=== PATIENT | male | born 1990 | race African-American/Black ===

== ENCOUNTER 2020-04-11 11:31 | Outpatient (REF) | payer OTHER, SELFPAY ==
[2020-04-11 11:56] LABS: MANUAL DIFF FLAG NO
[2020-04-11 12:11] LABS: Basophils Percent Auto 0.5 % (0-2); Eosinophils Percent Auto 0.9 % (0-4); Hematocrit 39.4 % (42-52); Hemoglobin 13.8 g/dl (14.0-18.0); Imm Gran Abs Auto 0.01 X10*3/uL (0.00-0.03); Imm Gran Pct Auto 0.2 % (0.0-0.4); Lymphocytes Absolute Auto 2.3 X10*3/uL (1.2-4.9); Lymphocytes Percent Auto 52.5 % (20-40); Mean Corpuscular Hemoglobin 29.6 pg (27.0-33.0); Mean Corpuscular Volume 84.4 fL (80-98); Mean Platelet Volume 10.2 fL (9.4-12.4); Monocytes Absolute Auto 0.4 X10*3/uL (0.1-1.2); Monocytes Percent Auto 9.5 % (2-11); Neutrophils Absolute Auto 1.6 X10*3/uL (2.0-8.3); Neutrophils Percent Auto 36.4 % (45-73); Platelet Count 243 X10*3/uL (160-400); Red Blood Count 4.67 X10*6/uL (4.60-5.80); Red Cell Distribution Width 12.2 % (11.0-16.0); White Blood Count 4.4 X10*3/uL (4.8-10.8)
[2020-04-11 12:29] LABS: Estimated Average Glucose 105 mg/dL; Hemoglobin A1c % 5.3 %
[2020-04-11 12:45] LABS: Alanine Aminotransferase 24 U/L (0-40); Albumin Level 4.6 g/dL (3.5-5.0); Alkaline Phosphatase 67 U/L (39-117); Anion Gap 11 (12-20); Aspartate Amino Transferase 23 U/L (5-37); Bilirubin Total 0.8 mg/dL (0.0-1.0); Blood Urea Nitrogen 15 mg/dL (9-16); Calcium 9.3 mg/dL (8.4-10.2); Carbon Dioxide 28 mmol/L (22-29); Chloride 103 mmol/L (96-108); Cholesterol 178 mg/dL; Estimated Glomerular Filt Rate > 60; Glucose Fasting 91 mg/dL (60-99); HDL Cholesterol 60 mg/dL; LDL Cholesterol Calculated 111 mg/dl; Potassium 4.1 mmol/l (3.3-5.1); Sodium 138 mmol/L (135-145); Total Protein 7.2 g/dL (6.5-8.0); Triglycerides 35 mg/dL
[2020-04-11 12:49] LABS: HBS Num1 115.62 mIU/mL (0-7.99); HIV AB/AG Nonreactive (Nonreactive); HIV Num 1 0.14 S/CO (0.00-0.99); ~HepC Num1 0.18 S/CO (0.00-0.79); ~Hepatitis B Surface Antibody REACTIVE (Nonreactive); ~Hepatitis C Antibody Nonreactive (Nonreactive)
[2020-04-11 12:52] LABS: Syphilis Screen Nonreactive (Nonreactive)
[2020-04-11 13:14] LABS: HBc Num1 0.05 S/CO (0.00-0.79); HBsAGNum1 0.19 S/CO (0.00-0.99); Hepatitis B Core Antibody Nonreactive (Nonreactive); Hepatitis B Surface Antigen Negative (Negative)
[2020-04-16 15:33] LABS: Chlamydia Pneumoniae IgA <1:16 titer (<1:16); Chlamydia Pneumoniae IgG <1:64 titer (<1:64); Chlamydia Pneumoniae IgM <1:10 titer (<1:10); Chlamydia Psittaci IgA <1:16 titer (<1:16); Chlamydia Psittaci IgG <1:64 titer (<1:64); Chlamydia Psittaci IgM <1:10 titer (<1:10); Chlamydia Trachomatis IgA <1:16 titer (<1:16); Chlamydia Trachomatis IgG <1:64 titer (<1:64); Chlamydia Trachomatis IgM <1:10 titer (<1:10)
== END 2020-04-11 11:32 | disposition home or self-care (01) ==
LOC: HO.LAB 11:31
PROVIDERS: PCP Physician Assistant; Visit Provider Physician Assistant
DX: Z13.1 Encounter for screening for diabetes mellitus (principal); Z11.3 Encounter for screening for infections with a predominantly sexual mode of transmission; Z13.220 Encounter for screening for lipoid disorders
CPT/HCPCS: 36415; 80053; 80061; 83036; 85025; 86631; 86632; 86704; 86706; 86780; 86803; 87340; 87389

== ENCOUNTER 2020-09-08 10:54 | Outpatient (REF) | payer OTHER, SELFPAY ==
--- NOTE | ~2020-09-08 | XR_ITS ---
EXAMINATION: BILATERAL HAND. CLINICAL INFORMATION: Pain in both hands. COMPARISON: None TECHNIQUE: 3 views of each hand. FINDINGS: LEFT HAND: The PIP, DIP and MCP joints are normal. No bony erosive changes. No fracture, dislocation or soft tissue swelling. The carpal bones and intercarpal joint spaces are maintained. The radioulnar carpal joint is normal. RIGHT HAND: The PIP, DIP, MCP joints and the intercarpal joints are normal. No acute fracture, dislocation, bony erosive changes or soft tissue swelling seen. XR/XR hand RT min 3V IMPRESSION: Unremarkable left hand and unremarkable right hand exam.
--- NOTE | ~2020-09-08 | XR_ITS ---
EXAMINATION: BILATERAL HAND. CLINICAL INFORMATION: Pain in both hands. COMPARISON: None TECHNIQUE: 3 views of each hand. FINDINGS: LEFT HAND: The PIP, DIP and MCP joints are normal. No bony erosive changes. No fracture, dislocation or soft tissue swelling. The carpal bones and intercarpal joint spaces are maintained. The radioulnar carpal joint is normal. RIGHT HAND: The PIP, DIP, MCP joints and the intercarpal joints are normal. No acute fracture, dislocation, bony erosive changes or soft tissue swelling seen. XR/XR hand LT min 3V IMPRESSION: Unremarkable left hand and unremarkable right hand exam.
== END 2020-09-08 10:55 | disposition home or self-care (01) ==
LOC: HO.HMGCX 10:54
PROVIDERS: PCP Physician Assistant; Visit Provider Hospitalist
DX: M79.641 Pain in right hand (principal); M79.642 Pain in left hand
CPT/HCPCS: 73130

== ENCOUNTER 2020-09-13 10:00 | Outpatient (REF) | payer OTHER, SELFPAY ==
--- NOTE | ~2020-09-13 | XR_ITS ---
EXAMINATION: XR LUMBOSACRAL SPINE CLINICAL INFORMATION: Radiculopathy COMPARISON: None TECHNIQUE: Three views of the lumbosacral spine. FINDINGS: There is mild curvature of the lumbar spine to the right. Bone alignment is otherwise normal. No fracture or dislocation is seen. Disc spaces are normal. Paraspinal soft tissues are normal. XR/XR lumbar spine 2-3V IMPRESSION: Mild curvature of the lumbar spine to the right.
[2020-09-13 10:57] LABS: Hematocrit 41.5 % (42-52); Mean Corpuscular HGB Conc 33.7 g/dl (31.0-36.0); Mean Corpuscular Hemoglobin 28.6 pg (27.0-33.0); Mean Corpuscular Volume 84.9 fL (80-98); Mean Platelet Volume 10.5 fL (9.4-12.4); Platelet Count 237 X10*3/uL (160-400); Red Blood Count 4.89 X10*6/uL (4.60-5.80); Red Cell Distribution Width 12.2 % (11.0-16.0); White Blood Count 4.4 X10*3/uL (4.8-10.8)
[2020-09-13 11:15] LABS: C Reactive Protein 0.16 mg/dL (< or = 0.50); Rheumatoid Factor < 15.0 IU/mL (<15.0)
[2020-09-13 11:40] LABS: Erythrocyte Sedimentation Rate 6 MM/HR (0-15)
[2020-09-14 08:15] LABS: HBS Num1 111.43 mIU/mL (0-7.99); HBc Num1 0.06 S/CO (0.00-0.79); HBsAGNum1 0.19 S/CO (0.00-0.99); HIV AB/AG Nonreactive (Nonreactive); HIV Num 1 0.05 S/CO (0.00-0.99); Hepatitis B Core Antibody Nonreactive (Nonreactive); Hepatitis B Surface Antigen Negative (Negative); ~HepC Num1 0.19 S/CO (0.00-0.79); ~Hepatitis B Surface Antibody REACTIVE (Nonreactive); ~Hepatitis C Antibody Nonreactive (Nonreactive)
[2020-09-14 08:19] LABS: Syphilis Screen Nonreactive (Nonreactive)
[2020-09-14 13:56] LABS: Anti Nuclear Antibody Screen NEGATIVE (NEGATIVE)
[2020-09-17 15:31] LABS: Testosterone, Free 114.2 pg/mL (35.0-155.0); Testosterone, Total 906 ng/dL (250-1100)
== END 2020-09-13 10:01 | disposition home or self-care (01) ==
LOC: HO.LAB 10:00
PROVIDERS: PCP Physician Assistant; Visit Provider Physician Assistant
DX: Z01.84 Encounter for antibody response examination (principal); Z11.3 Encounter for screening for infections with a predominantly sexual mode of transmission; Z11.4 Encounter for screening for human immunodeficiency virus [HIV]; M79.641 Pain in right hand; M79.642 Pain in left hand; F41.1 Generalized anxiety disorder; I10 Essential (primary) hypertension; N52.1 Erectile dysfunction due to diseases classified elsewhere; M54.16 Radiculopathy, lumbar region
CPT/HCPCS: 36415; 72100; 84402; 84403; 85027; 85652; 86038; 86039; 86140; 86431; 86704; 86706; 86780; 86803; 87340; 87389

== ENCOUNTER 2020-11-26 08:24 | Outpatient (REF) | payer OTHER, SELFPAY ==
--- NOTE | 2020-11-26 12:11 | MHC.AU.ANO ---
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 Also experiences intermittent tinnitus. Does patient feel they have a hearing loss?: Yes If Yes, Which Ear?: Both Ears When Was Hearing Difficulty First Noticed?: Approximately 2 years ago Has hearing been tested previously?: Yes Previous Hearing Test Results: As a child when due to ear infections and another time when one ear was injured. Hearing Handicap Inventory: HHIE SCORE: 10 Based on HHIE score, patient has: Mild to moderate perceived hearing handicap Ear History: Recent Ear Pain: Right ear intermittently when using foam ear protection & Qtips Family History of Hearing Loss?: Yes: Maternal Grandfather Ear Infections in Childhood: Both Ears Bothersome Tinnitus/Ringing/Noises in Ears: Both Ears Ear used on the phone: Right Ear History of occupational noise exposure?: Yes: History: History: Yes Branch: [employer] Years in : 13-16 Years Medical History: Medical History: Headache, Head Injury, Migraines, Sinus Infections in the past with Deviated Septum, Seasonal allergies with post nasal drip. Bernardino reports he does notice an increase in the tinnitus when he is experiencing a migraine. Medication List: Migraine medication (name not provided) Otoscopy: Right Ear: Unremarkable Left Ear: Unremarkable Tympanometry: Tympanometry performed due to: To assess integrity of the middle ear system Right Ear: Normal Middle Ear System (Type A) Left Ear: Normal Middle Ear System (Type A) Otoacoustic Emissions Frequency Range Used: 1.6-8 kHz Right Ear Results: Present Emissions Analysis: Present emissions suggest normal cochlear function Rules out peripheral hearing loss greater than a mild degree Left Ear Results: Present Emissions Analysis: Present emissions suggest normal cochlear function Rules out peripheral hearing loss greater than a mild degree Hearing Evaluation: Transducer(s) Used: Insert Earphones Method: Conventional Audiometry Stimuli Used: Pure Tones Right Ear: Description of Hearing: Normal hearing thresholds of 5-20 dB through all frequencies Left Ear: Description of Hearing: Normal hearing thresholds of 5-20 dB through all frequencies. Compared to the right ear, there is a 5 dB decrease at 1992-7546 Hz, which is not considered significant. However, Bernardino was able to perceive the sound quality difference during the test process today. Speech Recognition Threshold (SRT): Method Used: Monitored Live Voice Stimuli Used: Spondee Words Right Ear: 5 dB HL Left Ear: 10 dB HL Word Discrimination: Method: Recorded Lists Word Lists Used: NU-6 Right Ear: 100% at 50 dB HL Left Ear: 100% at 55 dB HL QuickSIN: Binaural Quick SIN Test: 3 dB SNR Loss which suggests Bernardino experiences a mild degree of difficulty understanding speech with increasing levels of background noise compared to other normal hearing individuals in this controlled test environment. Real world settings and attention, as well as distance from the speaker may influence speech discrimination ability. Interpretation of Results: Results indicate normal hearing thresholds and speech understanding, in the quiet environment, with normal middle and inner ear function for both ears. As mentioned above, speech discrimination ability when background noise is present may be more difficult for Bernardino. Discussed the theories/causes of tinnitus and noise exposure. Migraines can increase the perception of tinnitus and is consistent with Bernardino's report of the symptom increasing when he experiences migraines. Recommendations: -No further audiological action is indicated at this time. -Hearing protection should be used when around loud noise. -If a change in hearing or tinnitus is suspected, an audiologic re-evaluation is advised. -Discussed and provided a handout regarding communication strategies to use as needed to improve speech understanding. -Recommend trying bluetooth speakers connected to the television and placed directly next to where Bernardino sits. This will bring the sound source closer to him and improve the clarity of speech. Diagnosis: Primary Diagnosis: H93.293 (Concern of) Abnormal Auditory Perception Secondary Diagnosis: H93.13 Tinnitus, Bilateral Services Performed: Comprehensive Audiological Evaluation (CPT 78515) Diagnostic Otoacoustic Emissions (CPT 13825, 26+TC) Tympanometry (CPT 86619) Signature: Provider: Sophie Zaragoza, [facility]
== END 2020-11-26 08:25 | disposition home or self-care (01) ==
LOC: HO.SH 08:24
PROVIDERS: Visit Provider Physician Assistant
DX: H93.293 Other abnormal auditory perceptions, bilateral (principal); H93.13 Tinnitus, bilateral
CPT/HCPCS: 92557; 92567; 92588

== ENCOUNTER 2021-03-15 17:01 | Outpatient (REF) | payer OTHER, SELFPAY | END 2021-03-15 17:02 | disposition home or self-care (01) | LOC: HO.LNP 17:01 | PROVIDERS: Visit Provider Physician Assistant Medical | DX: N34.2 Other urethritis (principal) | CPT/HCPCS: 87086 ==

== ENCOUNTER 2021-03-16 | Outpatient (REF) | payer OTHER, SELFPAY ==
[2021-03-17 04:51] LABS: CT PCR NOT DETECTED (Not Detect.); NG PCR NOT DETECTED (Not Detect.)
== END 2021-03-16 00:01 | disposition home or self-care (01) ==
LOC: HO.HMGCLNP
PROVIDERS: Physician Assistant Medical; Visit Provider Physician Assistant
DX: Z11.3 Encounter for screening for infections with a predominantly sexual mode of transmission (principal); N34.2 Other urethritis
CPT/HCPCS: 87491; 87591

== ENCOUNTER → 2021-06-05 10:20 | Outpatient (REF) | payer OTHER, SELFPAY ==
--- NOTE | 2021-06-05 10:25 | ECG_ITS ---
Test Reason : cp Blood Pressure : / mmHG Vent. Rate : 057 BPM Atrial Rate : 057 BPM P-R Int : 158 ms QRS Dur : 096 ms QT Int : 386 ms P-R-T Axes : 061 068 057 degrees QTc Int : 375 ms Sinus bradycardia Otherwise normal ECG No previous ECGs available Referred By: Kyra Bellamy Electronically Signed By:LESLI NYE
[2021-06-05 10:43] LABS: MANUAL DIFF FLAG NO
[2021-06-05 11:16] LABS: Appearance Urine CLEAR; Color Urine YELLOW; Glucose Urine UA NEG (NEG); Leukocyte Esterase Urine NEG (NEG); Nitrite Urine NEG (NEG); Specific Gravity - Urine 1.025 (1.005-1.025); Urine Blood NEG (NEG); Urine Ketones NEG (NEG); Urine Protein NEG (NEG-TRACE)
[2021-06-05 11:16] LABS: Basophils Percent Auto 0.4 % (0-2); Eosinophils Absolute Auto 0.1 X10*3/uL (0.0-0.4); Eosinophils Percent Auto 2.1 % (0-4); Hematocrit 41.7 % (42.0-52.0); Hemoglobin 14.1 g/dl (14.0-18.0); Imm Gran Abs Auto 0.01 X10*3/uL (0.00-0.03); Imm Gran Pct Auto 0.2 % (0.0-0.4); Lymphocytes Absolute Auto 2.4 X10*3/uL (1.2-4.9); Lymphocytes Percent Auto 49.9 % (20-40); Mean Corpuscular HGB Conc 33.8 g/dl (31.0-36.0); Mean Corpuscular Hemoglobin 28.7 pg (27.0-33.0); Mean Corpuscular Volume 84.9 fL (80.0-98.0); Mean Platelet Volume 10.9 fL (9.4-12.4); Monocytes Absolute Auto 0.5 X10*3/uL (0.1-1.2); Monocytes Percent Auto 10.1 % (2-11); Neutrophils Absolute Auto 1.8 x10*3/uL (2.0-8.3); Neutrophils Percent Auto 37.3 % (45-73); Platelet Count 230 X10*3/uL (160-400); Red Blood Count 4.91 X10*6/uL (4.60-5.80); Red Cell Distribution Width 12.8 % (11.0-16.0); White Blood Count 4.9 X10*3/uL (4.8-10.8)
[2021-06-05 11:26] LABS: Estimated Average Glucose 114 mg/dL; Hemoglobin A1c % 5.6 %
[2021-06-05 11:54] LABS: Alanine Aminotransferase 40 U/L (0-40); Albumin Level 4.4 g/dL (3.5-5.0); Alkaline Phosphatase 67 U/L (39-117); Anion Gap 10 (12-20); Aspartate Amino Transferase 31 U/L (5-37); Bilirubin Total 0.9 mg/dL (0.0-1.0); Blood Urea Nitrogen 13 mg/dL (9-16); Calcium 9.6 mg/dL (8.4-10.2); Carbon Dioxide 29 mmol/L (22-29); Chloride 104 mmol/L (96-108); Cholesterol 169 mg/dL; Estimated Glomerular Filt Rate > 60; Glucose Fasting 92 mg/dL (60-99); HDL Cholesterol 57 mg/dL; LDL Cholesterol Calculated 104 mg/dl; Potassium 4.4 mmol/L (3.3-5.1); Sodium 139 mmol/L (135-145); Total Protein 7.3 g/dL (6.5-8.0); Triglycerides 41 mg/dL
[2021-06-05 12:19] LABS: HBS Num1 125.45 mIU/mL (0-7.99); HBc Num1 0.06 S/CO (0.00-0.79); HIV AB/AG Nonreactive (Nonreactive); HIV Num 1 0.08 S/CO (0.00-0.99); Hepatitis A Antibody IgM 0.21 Index (0-0.79); Hepatitis B Core Antibody Nonreactive (Nonreactive); Prostate Specific Antigen Scr 0.89 ng/mL (<0.05-4.0); TSH reflex Free T4 0.91 uIU/mL (0.32-4.0); ~HepC Num1 0.22 S/CO (0.00-0.79); ~Hepatitis A Antibody IgM Nonreactive (Nonreactive); ~Hepatitis B Surface Antibody REACTIVE (Nonreactive); ~Hepatitis C Antibody Nonreactive (Nonreactive)
[2021-06-05 12:23] LABS: Syphilis Screen Nonreactive (Nonreactive)
[2021-06-05 12:36] LABS: Folate 11.6 ng/mL (> or = 4.0); Vitamin B12 559 pg/mL (200-900)
[2021-06-05 12:49] LABS: HBsAGNum1 0.26 S/CO (0.00-0.99); Hepatitis B Surface Antigen Negative (Negative)
[2021-06-10 14:16] LABS: Vitamin D 25-OH, D2 <4 ng/mL; Vitamin D 25-OH, D3 36 ng/mL; Vitamin D 25-OH, Total 36 ng/mL (30-100)
[2021-06-11 07:42] LABS: Chlamydia Pneumoniae IgA <1:16 titer (<1:16); Chlamydia Pneumoniae IgG <1:64 titer (<1:64); Chlamydia Pneumoniae IgM <1:10 titer (<1:10); Chlamydia Psittaci IgA <1:16 titer (<1:16); Chlamydia Psittaci IgG <1:64 titer (<1:64); Chlamydia Psittaci IgM <1:10 titer (<1:10); Chlamydia Trachomatis IgA <1:16 titer (<1:16); Chlamydia Trachomatis IgG <1:64 titer (<1:64); Chlamydia Trachomatis IgM <1:10 titer (<1:10)
== END ==
LOC: HO.CARD 10:20
PROVIDERS: PCP Physician Assistant; Visit Provider Nurse Practitioner Acute Care
DX: Z00.00 Encounter for general adult medical examination without abnormal findings (principal); Z12.5 Encounter for screening for malignant neoplasm of prostate; Z11.4 Encounter for screening for human immunodeficiency virus [HIV]; R07.9 Chest pain, unspecified; R30.0 Dysuria; Y99.1 Military activity
CPT/HCPCS: 36415; 80053; 80061; 81003; 82306; 82607; 82746; 83036; 84153; 84443; 85025; 86631; 86632; 86704; 86706; 86709; 86780; 86803; 87340; 87389; 93005

== ENCOUNTER 2021-10-30 09:00 | Outpatient (RCR) | payer OTHER, SELFPAY ==
--- NOTE | 2021-09-04 11:27 | MHC.PT.EP ---
[facility] [place] Office [place] Office [place] Office [address] Dave Morales [address] [phone] F: [phone] F: [phone] F: [phone] F: [phone] Physical Therapy Plan of Care Date of Evaluation: Date of Surgery: Diagnosis: L hip pain Assessment: 31 y/o male referred to PT with L hip pain. His pain began ~6 weeks ago, following a fall while walking downstairs taking the trash out. He landed on mid thoracic spine and has had LBP that radiates into L hip/ posterior thigh since fall. Reports pain and difficulty with sleeping, prolonged standing, sitting for prolonged periods, running and exercise regime (elliptical, running, cycling, squats, deadlifts, cable machines.) Examination shows decreased lumbar AROM, decreased hip AROM, decreased quad/ hip flexor/ piriformis length, decreased core/ hip strength, hypomobile lumbar accessory mobility, and impaired postural awareness. Recommend PT 1x/week for 6 weeks to address impairments, implement HEP, and optimize functional mobility. Frequency and Duration: The patient will be seen 1x/week for 6 weeks Short Term Goals: 3 weeks 1. Demonstrate negative alyson test B 2. Compliant with HEP Usp Goals: 6 weeks 1. I with HEP and self management of sx 2. Pt will be able to stand > 15 min with pain < 3/10 3. Pt will be able to return to exercise regime at 50% weights with pain < 3/10 Treatment Plan: Modalities to reduce pain, spasms and effusion. Manual therapy to restore motion and function. Therapeutic exercise to improve strength and flexibility. Neuromuscular re-education for posture and balance. Therapeutic activities to return to functional activities of daily living. Electronically signed by: Lula Mcghee PT Please sign and return to therapist. Thank you for your referral.
--- NOTE | 2021-12-18 10:05 | MHC.PT.DC ---
[facility] [place] Office [place] Office [place] Office [address] Dave Morales [address] [phone] F: [phone] F: [phone] F: [phone] F: [phone] Physical Therapy Discharge Report Diagnosis: L hip pain Date of Surgery: Date of Evaluation: 09/04/21 Date of Discharge: 12/18/21 Treatments to Date: 5 Cancellations to Date: 1 No Shows to Date: 0 Discharge Status: Achieved Goals Improved Function Independent with HEP Discharge Summary: Pt did not f/u with final visits however at time of last visit, pt had made gains in postural awareness, strength, and less pain. D/c at this time. Electronically signed by: Lula Mcghee PT Please sign and return to therapist. Thank you for your referral.
== END 2021-12-18 10:06 | disposition home or self-care (01) ==
LOC: HO.PT 09:00
PROVIDERS: PCP Physician Assistant; Visit Provider Nurse Practitioner Family
DX: M25.552 Pain in left hip (principal)
CPT/HCPCS: 97110; 97112; 97161